=== PATIENT | female | born 1995 | race American Indian/Alaskan Native ===

== ENCOUNTER 2018-02-19 21:00 | Inpatient (IN) | payer MEDICAID ==
[2018-02-19] MEDS ORDERED: PITOCin/NS 20 UNIT/1000ML DRIP 20,000 MILLIUNITS/1,000 ML BAG IV ONE (22:42)
[2018-02-19] MEDS ORDERED: SUBLIMAZE ONE (22:43)
[2018-02-19] MEDS ORDERED: LACTATED RINGERS 1,000 ML IV SCH (23:00)
[2018-02-19] MEDS: PITOCin/NS 20 UNIT/1000ML DRIP 20 UNITS/1,000 ML BAG IV SCH (23:25)
--- NOTE | 2018-02-19 23:41 | Procedure Note ---
OB Delivery Note - Delivery Date of Delivery: 02/19/18 Surgeon: SHELBY UMAÑA Estimated blood loss: 200cc - Vaginal Delivery presentation: vertex Delivery position: OA Intrapartum events: meconium, precipitous labor- <3hr Delivery induction: none Delivery monitor: external FHT, external uterine Route of delivery: Delivery placenta: spontaneous Episiotomy: none Delivery laceration: none Anesthesia: none Delivery comments: Viable male delivered over intact perineum with meconium fluid. No nuchal cord. Placenta delivered spontaneously and intact with 3vc. No lacerations. Patient tolerated procedure well. Excellent hemostasis. - Infant A at 1 minute: 8 at 5 minutes: 9 Infant Gender: Male (3085 grams)
[2018-02-19] MEDS ORDERED: NORCO 5/325 ONE (23:43)
--- NOTE | 2018-02-19 23:46 | History and Physical Report ---
History of Present Illness Date of examination: 02/19/18 Date of admission: 02/19/18 22:24 Chief complaint: i'm having contractions History of present illness: Pt is a 22 year old at 40.1 weeks who presents in active labor. She entered into care at 10 weeks. She has had an uncomplicated course. Past History Past Medical History: no pertinent history Past Surgical History: no surgical history Social history: single - Obstetrical History Expected Date of Delivery: 02/18/18 Actual Gestation: 40 Week(s) 1 Day(s) : 3 Para: 2 Number of Living Children: 2 Medications and Allergies Allergies Allergy/AdvReac Type Severity Reaction Status Date / Time No Known Allergies Allergy Unverified 09/19/14 21:01 Home Medications Medication Instructions Recorded Confirmed Last Taken Type Famotidine [Pepcid] 20 mg PO DAILY #7 tablet 09/20/14 01/14/15 Unknown Rx Ondansetron [Zofran Odt] 4 mg PO Q6H #14 tab.rapdis 09/20/14 01/14/15 Unknown Rx Calcium Carbonate [Tums] 200 mg PO Q4HR PRN 01/14/15 01/14/15 01/11/15 22:00 History 1 tab Acetaminophen/Codeine 1 tab PO Q4HR PRN #30 tablet 01/16/15 Unknown Rx [Acetaminophen-Codeine #3 TAB] Ferrous Sulfate [Feosol 325 MG tab] 325 mg PO BID #60 tablet 01/16/15 Unknown Rx Ibuprofen [Motrin 600 MG tab] 600 mg PO Q6HR #30 tablet 01/16/15 Unknown Rx Active Meds: Active Medications Lactated Ringer's (Lactated Ringers) 1,000 mls @ 125 mls/hr IV DIRECT JUSTIN Review of Systems All systems: negative Genitourinary: pelvic pain, contractions - Vital Signs Vital signs: Vital Signs Temp Pulse Resp BP 96.5 F L 83 18 134/65 02/19/18 23:26 02/19/18 23:26 02/19/18 23:26 02/19/18 23:26 Temp Pulse Resp BP Pulse Ox 96.5 F L 83 18 134/65 02/19/18 23:26 02/19/18 23:26 02/19/18 23:26 02/19/18 23:26 - Physical Exam Breasts: Cardiovascular: Regular rate, Normal S1, Normal S2 Lungs: Positive: Clear to auscultation, Normal air movement Abdomen: Positive: normal appearance, soft, normal bowel sounds. Negative: distention, tenderness Vulva: both: normal Vagina: Positive: normal moisture. Negative: discharge Cervix: Negative: lesion, discharge Uterus: Positive: normal size, normal contour Adnexa: both: normal Anus/Rectum: Positive: normal perianal skin, heme negative. Negative: rectal mass, hemorrhoids Extremities: Deep Tendon Reflex Grade: Normal +2 - Obstetrical FHR: auscultation normal Cervical Dilatation: 6 Cervical Effacement Percentage: 100 station: -3 Uterine Contraction Pattern: Regular Uterine Tone Measurement Phase: Contraction Uterine Contraction Intensity: Moderate Results All other labs normal. Assessment and Plan IUP at 40.1 weeks here in active labor. Admit for expectant delivery. Anticipate
[2018-02-20] MEDS ORDERED: PITOCin/NS 20 UNIT/1000ML DRIP 20,000 MILLIUNITS/1,000 ML BAG IV ONE (00:18)
[2018-02-20] MEDS ORDERED: TYLENOL PO PRN (00:52)
[2018-02-20] MEDS ORDERED: NORCO 5/325 PO PRN (00:52)
[2018-02-20] MEDS ORDERED: PHENERGAN PO PRN (00:52)
[2018-02-20] MEDS ORDERED: LANSINOH TP PRN (00:52)
[2018-02-20] MEDS ORDERED: DULCOLAX PR PRN (00:52)
[2018-02-20] MEDS ORDERED: TUCKS PAD TP PRN (00:52)
[2018-02-20] MEDS ORDERED: SODIUM CHLORIDE FLUSH SYRINGE 10 ML IV PRN (00:52)
[2018-02-20] MEDS ORDERED: ZOFRAN IV PRN (00:52)
[2018-02-20] MEDS ORDERED: BENADRYL PO PRN (00:52)
[2018-02-20] MEDS ORDERED: MILK OF MAGNESIA PO PRN (00:52)
[2018-02-20 00:54] LABS: Basophils # (Auto) 0.1 K/mm3 (0.0-0.1); Basophils % (Auto) 0.6 % (0.0-1.8); Eosinophils % (Auto) 0.1 % (0.0-4.3); Hematocrit 28.4 % (30.3-42.9); Hemoglobin 9.6 gm/dl (10.1-14.3); Lymphocytes # (Auto) 0.7 K/mm3 (1.2-5.4); Lymphocytes % (Auto) 6.1 % (13.4-35.0); Mean Corpuscular HGB Conc 34 % (30-34); Mean Corpuscular Hemoglobin 28 pg (28-32); Mean Corpuscular Volume 84 fl (79-97); Monocytes # (Auto) 0.4 K/mm3 (0.0-0.8); Monocytes % (Auto) 3.8 % (0.0-7.3); Platelet Count 239 K/mm3 (140-440); Red Blood Count 3.39 M/mm3 (3.65-5.03); Red Cell Distribution Width 15.9 % (13.2-15.2)
[2018-02-20 01:21] LABS: Hepatitis C Virus Antibody Non-Reactive (NonReactive)
[2018-02-20] MEDS: MOTRIN PO SCH ×3 (01:54→19:15)
[2018-02-20] MEDS: PITOCin/NS 20 UNIT/1000ML DRIP 20 UNITS/1,000 ML BAG IV SCH (02:02)
[2018-02-20] MEDS ORDERED: D5LR 1,000 ML IV SCH (03:00)
[2018-02-20 03:53] LABS: Rubella IgG Antibody Immune (Immune)
[2018-02-20] MEDS: COLACE PO SCH ×2 (10:00→22:10)
[2018-02-20 12:16] LABS: Hematocrit 21.8 % (30.3-42.9); Hemoglobin 7.2 gm/dl (10.1-14.3)
[2018-02-21] MEDS: MOTRIN PO SCH ×2 (00:38→08:30)
[2018-02-21] MEDS: COLACE PO SCH (10:00)
[2018-02-21 10:42] VITALS: BP 106/68
--- NOTE | 2018-02-21 15:21 | Progress Note ---
Assessment and Plan PPD 1 s/p . Doing well. Plan for discharge today. Subjective - Subjective Date of service: 02/21/18 Interval history: Pt is a 22 year old at 40.1 weeks who presents in active labor. She entered into care at 10 weeks. She has had an uncomplicated course. Patient reports: appetite normal, voiding normally, pain well controlled [place]: doing well Objective - Vital Signs Latest vital signs: Vital Signs Temp Pulse Resp BP Pulse Ox 02/21/18 08:54 98.7 F 18 99 02/21/18 08:32 83 100 02/21/18 00:38 18 02/21/18 00:00 98.6 F 82 18 112/47 02/20/18 16:22 98.1 F 72 18 105/54 100 Intake and Output 02/21/18 02/21/18 02/21/18 06:59 14:59 22:59 Intake Total 360 120 Balance 360 120 Intake: Oral 120 Intake, Free Water 360 Other: Total, Intake Amount 120 # Voids Void 2 1 - Exam Breasts: Present: deferred Cardiovascular: Present: Regular rate, Normal S1 Lungs: Present: Clear to auscultation, Normal air movement Abdomen: Present: normal appearance, soft, normal bowel sounds Vulva: both: normal Uterus: Present: normal, firm, fundal height below umbilicus
--- NOTE | 2018-02-21 15:22 | Discharge Summary ---
Providers - Providers Date of Admission: 02/19/18 22:24 Date of discharge: 02/21/18 Attending physician: BASILIA PATEL MD Primary care physician: BASILIA PATEL MD Hospitalization Reason for admission: active labor Delivery: Episiotomy: none Laceration: none complications: none Discharge diagnosis: IUP at term delivered [place] baby: female Hospital course: unremarkable Condition at discharge: Good Disposition: DC-01 TO HOME OR SELFCARE Plan - Discharge Medications Prescriptions: Docusate Sodium [Colace] 100 mg PO BID PRN #60 capsule PRN Reason: Constipation Ferrous Sulfate 325 mg PO BID #60 tablet. Ibuprofen [Motrin] 600 mg PO Q8H PRN #30 tablet PRN Reason: Pain - Provider Discharge Summary Activity: routine, no sex for 6 weeks, no heavy lifting 4 weeks, no strenuous exercise Additional instructions: [] Smoking cessation referral if applicable(refer to patient education folder for contact #) [] Refer to [facility]'s [facility] Booklet Call your doctor immediately for: * Fever > 100.5 * Heavy vaginal bleeding ( >1 pad per hour) * Severe persistent headache * Shortness of breath * Reddened, hot, painful area to leg or breast * Drainage or odor from incision. * Keep incision clean and dry at all times and follow doctor's instructions regarding bathing/showering - Follow up plan Follow up: BASILIA PATEL MD [Primary Care Provider] - 6 Weeks Forms: [facility] Discharge Summary
== END 2018-02-21 17:00 | disposition home or self-care (01) | DRG 775 ==
LOC: TRG 21:00 → LD 22:24 → OB 02-20 01:22
PROVIDERS: ADMIT Obstetrics & Gynecology; ATTEND Obstetrics & Gynecology
PROC: 10E0XZZ Delivery of Products of Conception, External Approach (ICD-10-PCS; principal; 2018-02-19)
DX: O77.0 Labor and delivery complicated by meconium in amniotic fluid (principal); O62.3 Precipitate labor; Z3A.40 40 weeks gestation of pregnancy; Z37.0 Single live birth
CPT/HCPCS: 36415; 85014; 85018; 85025; 85660; 86592; 86706; 86762; 86803; 86850; 86900; 86901; 87806; 88307; J2590; J3010; J7120; J7121

== ENCOUNTER 2021-04-18 15:27 | Emergency (ER) | payer MEDICAID ==
--- NOTE | 2021-04-18 15:36 | Event Note ---
ED Screening Note ED Screening Note: r flank pain with hematuria mild fever/tachy in triage no hx k stones lmp 03/26 no vag bleed or dc This initial assessment/diagnostic orders/clinical plan/treatment(s) is/are subject to change based on patients health status, clinical progression and re- assessment by fellow clinical providers in the ED. Further treatment and workup at subsequent clinical providers discretion. Patient/guardian urged not to elope from the ED as their condition may be serious if not clinically assessed and managed. Initial orders include: ro uti/pylo/stone/preg
[2021-04-18 15:58] LABS: Hematocrit 34.1 % (30.3-42.9); Hemoglobin 11.4 gm/dl (10.1-14.3); Mean Corpuscular HGB Conc 33 % (30-34); Mean Corpuscular Volume 84 fl (79-97); Platelet Count 435 K/mm3 (140-440); Red Blood Count 4.07 M/mm3 (3.65-5.03); Red Cell Distribution Width 18.9 % (13.2-15.2)
[2021-04-18 16:18] LABS: Blood Urea Nitrogen 5 mg/dL (7-17); Calcium 9.1 mg/dL (8.4-10.2); Hemolysis Index 5
[2021-04-18 16:19] LABS: BUN/Creatinine Ratio 7
[2021-04-18 16:21] LABS: Bilirubin,Urine NEG (Negative); Blood,Urine LG (Negative); Color,Urine Amber (Yellow); Urobilinogen,Urine < 2.0 mg/dL (<2.0)
[2021-04-18 16:23] LABS: RBC,Urine > 182.0 /HPF (0.0-6.0)
[2021-04-18 16:25] LABS: HCG Qualitative,Urine Negative (Negative)
[2021-04-18] MEDS ORDERED: KETOROLAC 30 MG/1 ML INJ IV ONE (17:51)
[2021-04-18] MEDS ORDERED: cefTRIAXone/NS 1 GM/50 ML 1 GM/50 ML BAG IV ONE (17:51)
[2021-04-18] MEDS ORDERED: SODIUM CHLORIDE 0.9% 1000 ML 1,000 ML IV ONE (17:53)
--- NOTE | 2021-04-18 17:54 | Emergency Department Report ---
ED General Adult HPI - General Chief complaint: Urogenital-Female Stated complaint: blood in urine Time Seen by Provider: 04/18/21 15:36 Source: patient Mode of arrival: Ambulatory Limitations: No Limitations - History of Present Illness Initial comments: 25-year-old -[place] female patient presents with complaints of hematuria x1 week. Patient states she also has right flank pain that is now radiating to her right lower abdomen. She rates her current pain as a 5/10 in severity. She denies any dysuria, vaginal discharge/dyspareunia, nausea/v omiting/diarrhea/constipation, or cough/shortness of breath/chest pain. She does admit to body aches and chills. No history of kidney stones per patient. She denies any other past medical history. - Related Data Previous Rx's Medication Instructions Recorded Last Taken Type Ferrous Sulfate [Feosol 325 MG tab] 325 mg PO QDAY #30 tablet 02/13/21 Unknown Rx Naproxen Sodium [Naproxen Sodium 550 mg PO Q12HR PRN #60 tablet 02/13/21 Unknown Rx 550mg] HYDROcodone/APAP 5-325 [[place] 1 each PO Q6HR PRN #15 tablet 02/14/21 Unknown Rx 5/325] Ibuprofen [Motrin] 800 mg PO Q8HR PRN #30 tablet 02/14/21 Unknown Rx Acetaminophen 1,000 mg PO QID PRN #30 capsule 04/18/21 Unknown Rx Ciprofloxacin HCl 500 mg PO BID 7 Days #14 tablet 04/18/21 Unknown Rx Ibuprofen [Motrin 600 MG tab] 600 mg PO Q8H PRN #15 tablet 04/18/21 Unknown Rx Allergies Allergy/AdvReac Type Severity Reaction Status Date / Time No Known Allergies Allergy Verified 11/17/18 10:56 ED Review of Systems ROS: Stated complaint: blood in urine Other details as noted in HPI Constitutional: chills. denies: diaphoresis, fever Respiratory: denies: cough, shortness of breath Cardiovascular: denies: chest pain Gastrointestinal: abdominal pain. denies: vomiting, diarrhea, constipation Genitourinary: frequency, hematuria. denies: urgency, dysuria, discharge, abnormal menses, dyspareunia Skin: denies: lesions, change in color Neurological: denies: headache Hematological/Lymphatic: denies: swollen glands ED Past Medical Hx - Past Medical History Previous Medical History?: No Hx Hypertension: No Hx Heart Attack/AMI: No Hx Congestive Heart Failure: No Hx Diabetes: No Hx Deep Vein Thrombosis: No Hx Liver Disease: No Hx Renal Disease: No Hx Sickle Cell Disease: No Hx Seizures: Yes (last seizure 2001) Hx Asthma: No Hx COPD: No Hx HIV: No - Surgical History Past Surgical History?: No Hx Pacemaker: No Hx Internal Defibrillator: No - Social History Smoking Status: Former Smoker - Medications Home Medications: Home Medications Medication Instructions Recorded Confirmed Last Taken Type Ferrous Sulfate [Feosol 325 MG tab] 325 mg PO QDAY #30 tablet 02/13/21 Unknown Rx Naproxen Sodium [Naproxen Sodium 550 mg PO Q12HR PRN #60 tablet 02/13/21 U nknown Rx 550mg] HYDROcodone/APAP 5-325 [[place] 1 each PO Q6HR PRN #15 tablet 02/14/21 Unknown Rx 5/325] Ibuprofen [Motrin] 800 mg PO Q8HR PRN #30 tablet 02/14/21 Unknown Rx Acetaminophen 1,000 mg PO QID PRN #30 capsule 04/18/21 Unknown Rx Ciprofloxacin HCl 500 mg PO BID 7 Days #14 tablet 04/18/21 Unknown Rx Ibuprofen [Motrin 600 MG tab] 600 mg PO Q8H PRN #15 tablet 04/18/21 Unknown Rx ED Physical Exam - General Limitations: No Limitations General appearance: alert, in no apparent distress - Head Head exam: Present: atraumatic, normocephalic - Eye Eye exam: Present: normal appearance. Absent: scleral icterus - Neck Neck exam: Present: normal inspection - Respiratory Respiratory exam: Present: normal lung sounds bilaterally. Absent: respiratory distress - Cardiovascular Cardiovascular Exam: Present: regular rate, normal rhythm - GI/Abdominal GI/Abdominal exam: Present: soft, tenderness (Right lower quadrant), normal bowel sounds. Absent: distended, guarding, rebound, rigid - Extremities Exam Extremities exam: Present: full ROM - Back Exam Back exam: Present: full ROM, CVA tenderness (R). Absent: CVA tenderness (L) - Neurological Exam Neurological exam: Present: alert, oriented X3, normal gait - Psychiatric Psychiatric exam: Present: normal affect, normal mood - Skin Skin exam: Present: warm, dry, intact, normal color. Absent: rash, cyanosis, diaphoretic, ecchymosis ED Course Vital Signs 04/18/21 15:34 Temperature 99.7 F H Pulse Rate 99 H Respiratory 18 Rate Blood Pressure 121/79 [Right] O2 Sat by Pulse 100 Oximetry ED Medical Decision Making - Lab Data Result diagrams: 04/18/21 15:43 04/18/21 15:43 Lab Results 04/18/21 04/18/21 04/18/21 Range/Units 15:43 15:43 15:49 WBC 11.4 H (4.5-11.0) K/mm3 RBC 4.07 (3.65-5.03) M/mm3 Hgb 11.4 (10.1-14.3) gm/dl Hct 34.1 (30.3-42.9) % MCV 84 (79-97) fl MCH 28 (28-32) pg MCHC 33 (30-34) % RDW 18.9 H (13.2-15.2) % Plt Count 435 (140-440) K/mm3 Sodium 136 L (137-145) mmol/L Potassium 3.8 (3.6-5.0) mmol/L Chloride 100.7 (98-107) mmol/L Carbon Dioxide 22 (22-30) mmol/L Anion Gap 17 mmol/L BUN 5 L (7-17) mg/dL Creatinine 0.7 (0.6-1.2) mg/dL Estimated GFR > 60 ml/min BUN/Creatinine Ratio 7 % Glucose 85 (65-100) mg/dL Calcium 9.1 (8.4-10.2) mg/dL Total Bilirubin (0.1-1.2) mg/dL Direct Bilirubin (0-0.2) mg/dL Indirect Bilirubin mg/dL AST (5-40) units/L ALT (7-56) units/L Alkaline Phosphatase (35-129) units/L Total Protein (6.3-8.2) g/dL Albumin (3.9-5) g/dL Albumin/Globulin Ratio % Urine Color Greta (Yellow) Urine Turbidity Cloudy (Clear) Urine pH 6.0 (5.0-7.0) Ur Specific [place] 1.011 (1.003-1.030) Urine Protein 100 mg/dl (Negative) mg/dL Urine Glucose (UA) 50 (Negative) mg/dL Urine Ketones Tr (Negative) mg/dL Urine Blood Lg (Negative) Urine Nitrite Neg (Negative) Urine Bilirubin Neg (Negative) Urine Urobilinogen < 2.0 (<2.0) mg/dL Ur Leukocyte Esterase Neg (Negative) Urine WBC (Auto) 59.0 H (0.0-6.0) /HPF Urine RBC (Auto) > 182.0 (0.0-6.0) /HPF Urine HCG, Qual Negative (Negative) 04/18/21 Range/Units 17:55 WBC (4.5-11.0) K/mm3 RBC (3.65-5.03) M/mm3 Hgb (10.1-14.3) gm/dl Hct (30.3-42.9) % MCV (79-97) fl MCH (28-32) pg MCHC (30-34) % RDW (13.2-15.2) % Plt Count (140-440) K/mm3 Sodium (137-145) mmol/L Potassium (3.6-5.0) mmol/L Chloride (98-107) mmol/L Carbon Dioxide (22-30) mmol/L Anion Gap mmol/L BUN (7-17) mg/dL Creatinine (0.6-1.2) mg/dL Estimated GFR ml/min BUN/Creatinine Ratio % Glucose (65-100) mg/dL Calcium (8.4-10.2) mg/dL Total Bilirubin 0.60 (0.1-1.2) mg/dL Direct Bilirubin < 0.2 (0-0.2) mg/dL Indirect Bilirubin 0.4 mg/dL AST 14 (5-40) units/L ALT 9 (7-56) units/L Alkaline Phosphatase 100 (35-129) units/L Total Protein 6.9 (6.3-8.2) g/dL Albumin 4.4 (3.9-5) g/dL Albumin/Globulin Ratio 1.8 % Urine Color (Yellow) Urine Turbidity (Clear) Urine pH (5.0-7.0) Ur Specific [place] (1.003-1.030) Urine Protein (Negative) mg/dL Urine Glucose (UA) (Negative) mg/dL Urine Ketones (Negative) mg/dL Urine Blood (Negative) Urine Nitrite (Negative) Urine Bilirubin (Negative) Urine Urobilinogen (<2.0) mg/dL Ur Leukocyte Esterase (Negative) Urine WBC (Auto) (0.0-6.0) /HPF Urine RBC (Auto) (0.0-6.0) /HPF Urine HCG, Qual (Negative) - Radiology Data Radiology results: report reviewed CT ABDOMEN AND PELVIS WITH CONTRAST INDICATION / CLINICAL INFORMATION: Right flank and right lower quadrant pain, hematuria for one week. TECHNIQUE: Axial CT images were obtained through the abdomen and pelvis after 100 cc Omnipaque [address] scans at this location are performed using CT dose reduction for ALARA by means of automated exposure control. COMPARISON: None available. FINDINGS: LOWER CHEST: No significant abnormality. LIVER: No significant abnormality. GALLBLADDER: No significant abnormality. BILE DUCTS: No significant abnormality. PANCREAS: No significant abnormality. SPLEEN: No significant abnormality. ADRENALS: No significant abnormality. RIGHT KIDNEY / URETER: Areas of heterogeneity are seen throughout the right renal cortex, most notably along the right lower renal pole without visualization of an organized abscess, suspicious lesion or other significant abnormality. There is mild right perinephric fat s tranding. LEFT KIDNEY / URETER: No significant abnormality. STOMACH / SMALL BOWEL: No significant abnormality. COLON: No significant abnormality. APPENDIX: No visualized. PERITONEUM: No free fluid. No free air. No fluid collection. LYMPH NODES: No significant adenopathy. AORTA / ARTERIES: No significant abnormality. IVC / VEINS: No significant abnormality. URINARY BLADDER: No significant abnormality. REPRODUCTIVE ORGANS: There is nonspecific prominence of the uterus and endometrial canal, which could be related to the patient's menstrual cycle. No other significant abnormality. ADDITIONAL FINDINGS: None. SKELETAL SYSTEM: No significant abnormality. IMPRESSION: 1. Suspected right pyelonephritis without other acute findings. 2. Additional findings as above. - Medical Decision Making 25-year-old -[place] female patient presents with complaints of hematuria x1 week. Patient states she also has right flank pain that is now radiating to her right lower abdomen. She rates her current pain as a 5/10 in severity. She denies any dysuria, vaginal discharge/dyspareunia, nausea/vomiting/diarrhea/constipation, or cough/shortness of breath/chest pain. She does admit to body aches and chills. No history of kidney stones per patient. She denies any other past medical history. Mild elevated white count noted on CBC at 11.7. Right CVA tenderness on exam. UA shows 59 WBCs. Kidney function is normal on chemistry. CT abdomen shows mild right perinephric fat stranding and suspected right pyelonephritis. Patient treated with 1 g of IV Rocephin and given normal saline and Toradol. Her pain is controlled. She remains nontoxic-appearing. She is stable for discharge home. Prescription given for Cipro 500 mg twice daily x7 days. Recommend follow-up with PCP in 3 days. Discussed in great detail signs and symptoms that should prompt immediate return to the emergency department in detail patient verbalizes understanding. Critical care attestation.: If time is entered above; I have spent that time in minutes in the direct care of this critically ill patient, excluding procedure time. ED Disposition Clinical Impression: Pyelonephritis of right kidney Disposition: DC- TO HOME OR SELFCARE Is pt being admited?: No Condition: Stable Instructions: Pyelonephritis, Adult Prescriptions: Acetaminophen 1,000 mg PO QID PRN #30 capsule PRN Reason: pain/fever Ciprofloxacin HCl 500 mg PO BID 7 Days #14 tablet Ibuprofen [Motrin 600 MG tab] 600 mg PO Q8H PRN #15 tablet PRN Reason: Pain
[2021-04-18 18:31] LABS: Alanine Aminotransferase 9 units/L (7-56); Albumin 4.4 g/dL (3.9-5)
[2021-04-18 18:32] LABS: Bilirubin,Direct < 0.2 mg/dL (0-0.2)
--- NOTE | 2021-04-18 19:49 | Cat Scan Report ---
CT ABDOMEN AND PELVIS WITH CONTRAST INDICATION / CLINICAL INFORMATION: Right flank and right lower quadrant pain, hematuria for one week. TECHNIQUE: Axial CT images were obtained through the abdomen and pelvis after 100 cc Omnipaque [address] scans at this location are performed using CT dose reduction for ALARA by means of automated exposure control. COMPARISON: None available. FINDINGS: LOWER CHEST: No significant abnormality. LIVER: No significant abnormality. GALLBLADDER: No significant abnormality. BILE DUCTS: No significant abnormality. PANCREAS: No significant abnormality. SPLEEN: No significant abnormality. ADRENALS: No significant abnormality. RIGHT KIDNEY / URETER: Areas of heterogeneity are seen throughout the right renal cortex, most notabl y along the right lower renal pole without visualization of an organized abscess, suspicious lesion o r other significant abnormality. There is mild right perinephric fat stranding. LEFT KIDNEY / URETER: No significant abnormality. STOMACH / SMALL BOWEL: No significant abnormality. COLON: No significant abnormality. APPENDIX: No visualized. PERITONEUM: No free fluid. No free air. No fluid collection. LYMPH NODES: No significant adenopathy. AORTA / ARTERIES: No significant abnormality. IVC / VEINS: No significant abnormality. URINARY BLADDER: No significant abnormality. REPRODUCTIVE ORGANS: There is nonspecific prominence of the uterus and endometrial canal, which could be related to the patient's menstrual cycle. No other significant abnormality. ADDITIONAL FINDINGS: None. SKELETAL SYSTEM: No significant abnormality. IMPRESSION: 1. Suspected right pyelonephritis without other acute findings. 2. Additional findings as above. Signer Name: Magnus Cook MD Signed: 04/18/2021 7:45 PM Workstation Name: [id number]
[2021-04-19 05:56] VITALS: BP 131/69
== END 2021-04-18 20:30 | disposition home or self-care (01) ==
LOC: ED 15:27
DX: N12 Tubulo-interstitial nephritis, not specified as acute or chronic (principal); R56.9 Unspecified convulsions; Z87.891 Personal history of nicotine dependence; Z79.1 Long term (current) use of non-steroidal anti-inflammatories (NSAID); Z79.899 Other long term (current) drug therapy
CPT/HCPCS: 36415; 74177; 80048; 80076; 81001; 81025; 85027; 87086; 96365; 96375; 99284; J0696; J1885; J7030; Q9967